=== PATIENT | male | born 1990 | race African-American/Black ===

== ENCOUNTER 2022-03-24 14:48 | Inpatient (IN) | payer OTHER ==
[2022-03-24 18:06] VITALS: BMI 41.5
[2022-03-24] MEDS ORDERED: guaiFENesin 200 MG/10 ML 10 ML UNIT-DOSE CUPS PO PRN (19:53)
[2022-03-24] MEDS ORDERED: LOPERAMIDE HCL 2 MG CAPSULE PO PRN (19:53)
[2022-03-24] MEDS ORDERED: MAGNESIUM HYDROX 2400MG/30ML ORAL SUSPENSION 30 ML CUP PO PRN (19:53)
[2022-03-24] MEDS ORDERED: MAGNESIUM CITRATE 300 ML BOTTLE PO PRN (19:53)
[2022-03-24] MEDS ORDERED: hydrOXYzine PAMOATE 25 MG CAPSULE (FP) PO PRN (19:53)
[2022-03-24] MEDS ORDERED: MAG HYDROX/AL HYDROX/SIMETH 30 ML UNIT-DOSE CUP PO PRN (19:53)
[2022-03-24] MEDS ORDERED: BENZOCAINE/MENTHOL (CHLORASEPTIC ) LOZENGE MM PRN (19:53)
[2022-03-24] MEDS ORDERED: P-EPHED 60MG/TRIPROLIDI 2.5MG TABLET PO PRN (19:53)
[2022-03-24] MEDS ORDERED: IBUPROFEN 400 MG TABLET (FP) PO PRN (19:53)
[2022-03-24] MEDS ORDERED: ACETAMINOPHEN 325 MG TABLET (FP) PO PRN (19:53)
[2022-03-25] MEDS ORDERED: TUBERCULIN PPD 5 TU/0.1ML VIAL ID ONE (09:47)
[2022-03-25 09:57] LABS: HEMATOCRIT 41.9 % (35.4-49); HEMOGLOBIN 13.7 GM/dL (11.7-16.9); MCHC 32.8 g/dl (32.0-35.9); MEAN CELL VOLUME 85.4 fl (80-96); MEAN PLT VOLUME 9.3 fl (7.5-11.1); PLATELET COUNT 193 10^3/uL (134-434); WHITE BLOOD COUNT 8.2 K/mm3 (4.0-10.0)
[2022-03-25 10:09] LABS: ALBUMIN 3.6 g/dl (3.4-5.0)
[2022-03-25 10:13] LABS: BILIRUBIN,TOTAL 0.6 mg/dL (0.2-1)
[2022-03-25 10:15] LABS: BLOOD UREA NITROGEN 11.3 mg/dL (7-18); CREATININE 0.8 mg/dL (0.55-1.3)
[2022-03-25] MEDS: PRENATAL VITAMINS W/ FOLIC ACID TABLET (FP) PO SCH (10:55)
[2022-03-25] MEDS: NICOTINE POLACRILEX 2 MG GUM BUC PRN (10:55)
[2022-03-25 11:16] LABS: SYPHILIS W/ RPR CONF NON-REACTIVE (NONREACTIVE)
[2022-03-25] MEDS: HALOPERIDOL 5 MG TABLET PO SCH (22:29)
[2022-03-25] MEDS: THIAMINE HCL 100 MG TABLET (FP) PO SCH ×2 (22:29→22:30)
[2022-03-25] MEDS: MELATONIN 5 MG TABLETS PO PRN (22:30)
[2022-03-26 07:20] VITALS: PULSE 59; RESP 18
[2022-03-26] MEDS: PRENATAL VITAMINS W/ FOLIC ACID TABLET (FP) PO SCH (09:34)
[2022-03-26] MEDS: OLANZapine 10 MG TABLET PO SCH (09:34)
[2022-03-26] MEDS: HALOPERIDOL 5 MG TABLET PO SCH ×2 (09:34→21:49)
[2022-03-26] MEDS: NICOTINE POLACRILEX 2 MG GUM BUC PRN ×2 (09:36→21:50)
[2022-03-26] MEDS ORDERED: PATIENT'S OWN MEDICATION (NON-FORMULARY) (Olanzapine [Zyprexa] 10 MG Tablet) PO SCH (10:00)
[2022-03-26] MEDS: THIAMINE HCL 100 MG TABLET (FP) PO SCH ×2 (17:22→21:49)
[2022-03-26 17:32] LABS: EPI CELLS >36 /uL (0-25.1); HYALINE CASTS 1 /uL (0-3.1); PH,URINE 6.5 (5.0-8.0); URINE APPEARANCE CLEAR; URINE BACTERIA 1148 /uL (0-1359); URINE BILIRUBIN NEGATIVE (NEGATIVE); URINE COLOR YELLOW; URINE GLUCOSE (UA) NEGATIVE (NEGATIVE); URINE KETONE NEGATIVE (NEGATIVE); URINE LEUK ESTERASE TRACE (NEGATIVE); URINE NITRITE NEGATIVE (NEGATIVE); URINE PROTEIN NEGATIVE (NEGATIVE); URINE RBC 3 /uL (0-23.9); URINE UROBILINOGEN 0.2 mg/dL (0.2-1.0); URINE WBC 26 /uL (0-25.8)
[2022-03-26] MEDS: MELATONIN 5 MG TABLETS PO PRN (21:49)
[2022-03-27 06:37] VITALS: BP 139/67; TEMP 98.6
[2022-03-27] MEDS: PRENATAL VITAMINS W/ FOLIC ACID TABLET (FP) PO SCH (09:58)
[2022-03-27] MEDS: HALOPERIDOL 5 MG TABLET PO SCH (09:58)
[2022-03-27] MEDS: OLANZapine 10 MG TABLET PO SCH (09:58)
[2022-03-27] MEDS: NICOTINE POLACRILEX 2 MG GUM BUC PRN (09:59)
== END 2022-03-27 10:45 | disposition left against medical advice (07) | DRG 770 ==
LOC: YASAS 14:48 → Y3W 20:13
PROVIDERS: ADMIT Allergy & Immunology; ATTEND Psychiatry & Neurology Pain Medicine
PROC: HZ42ZZZ Group Counseling for Substance Abuse Treatment, Cognitive-Behavioral (ICD-10-PCS; principal; 2022-03-24)
DX: F10.20 Alcohol dependence, uncomplicated (principal); F12.20 Cannabis dependence, uncomplicated; F17.210 Nicotine dependence, cigarettes, uncomplicated; F25.9 Schizoaffective disorder, unspecified; Z91.51 Personal history of suicidal behavior; Z99.89 Dependence on other enabling machines and devices; Z88.8 Allergy status to other drugs, medicaments and biological substances; Z59.00 Homelessness unspecified
CPT/HCPCS: 36415; 80053; 81003; 85027; 86780; 86803; 87811; C9803-CS; U0003; U0005